=== PATIENT | female | born 1965 | race African-American/Black ===

== ENCOUNTER 2018-07-23 21:43 | Emergency (ER) | payer MEDICAID, OTHER ==
[~2018-07-23] VITALS: Ht 180.3 cm; Wt 59.0 kg
[2018-07-24] MEDS ORDERED: LORAZEPAM 2MG/ML CPJ IV ONE (03:15)
[2018-07-24] MEDS ORDERED: LORAZEPAM 1MG TABLET PO ONE (03:30)
[2018-07-24] MEDS ORDERED: DIPHENHYDRAMINE 25MG CAPSULE PO ONE (03:30)
[2018-07-24 03:33] LABS: BASOPHILS % 2.2 % (0.0-2.0); EOSINOPHILS % 2.3 % (0.0-5.0); HEMATOCRIT. 42.4 % (36.0-48.0); HEMOGLOBIN. 14.3 g/dL (12.0-16.0); LYMPHOCYTES % 57.8 % (20.0-50.0); MEAN CORPUSCULAR VOLUME 88.8 fL (81.0-99.0); MEAN PLATELET VOLUME 9.3 fl (7.4-10.4); MONOCYTES % 6.1 % (2.0-8.0); NEUTROPHILS % 31.6 % (40.0-76.0); PLATELET 201 x1000/uL (130-400); RED BLOOD CELL COUNT 4.78 mill/uL (4.2-5.4); RED CELL DISTRIBUTION WIDTH 13.1 % (11.6-14.6)
[2018-07-24 03:34] LABS: CHLORIDE 105 mEq/L (98-107)
[2018-07-24 09:30] VITALS: BP 111/75
[2018-07-25] MEDS ORDERED: METF-414 PO (00:58)
[2018-07-25] MEDS ORDERED: OMEP40CA34 PO (00:58)
[2018-07-25] MEDS ORDERED: AMLO5TAB4 PO (00:58)
== END 2018-07-24 09:32 | disposition home or self-care (01) ==
LOC: ER 21:43
DX: F13.239 Sedative, hypnotic or anxiolytic dependence with withdrawal, unspecified (principal); I10 Essential (primary) hypertension; E11.9 Type 2 diabetes mellitus without complications; G82.20 Paraplegia, unspecified
CPT/HCPCS: 36415; 71045; 82962; 84484; 93005; 99284; Q0163

== ENCOUNTER 2018-07-24 09:52 | Inpatient (IN) | payer MEDICAID, OTHER ==
[~2018-07-24] VITALS: Ht 180.3 cm; Wt 58.1 kg
[2018-07-24] MEDS ORDERED: ASPIRIN 81MG TABLET PO ONE (11:30)
[2018-07-24] MEDS ORDERED: NITROGLYCERIN 0.4MG TABLET SL SL PRN (11:30)
[2018-07-24] MEDS ORDERED: MAGNESIUM/ALUMINUM HYDROXIDE/SIMETHICONE 30ML UDC PO ONE (11:45)
[2018-07-24 13:45] LABS: BASOPHILS % 0.9 % (0.0-2.0); EOSINOPHILS % 1.4 % (0.0-5.0); HEMATOCRIT. 44.4 % (36.0-48.0); HEMOGLOBIN. 14.9 g/dL (12.0-16.0); LYMPHOCYTES % 37.3 % (20.0-50.0); MEAN CORPUSCULAR HEMOGLOBIN 29.8 pg (28.0-32.0); MEAN CORPUSCULAR VOLUME 88.7 fL (81.0-99.0); MEAN PLATELET VOLUME 10.2 fl (7.4-10.4); MONOCYTES % 4.7 % (2.0-8.0); NEUTROPHILS % 55.7 % (40.0-76.0); PLATELET 197 x1000/uL (130-400); RED CELL DISTRIBUTION WIDTH 13.1 % (11.6-14.6)
[2018-07-24 13:51] LABS: CHLORIDE 104 mEq/L (98-107)
[2018-07-24 13:57] LABS: D-DIMER 0.2 mg/L FEU (<0.50); INR 1.1; PARTIAL THROMBOPLASTIN TIME 27.3 sec (23.4-31.0); PROTHROMBIN TIME 10.8 sec (9.1-11.1)
[2018-07-24] MEDS ORDERED: ONDANSETRON HCL 4MG/2ML INJ IV PRN (15:00)
[2018-07-24] MEDS ORDERED: DOCUSATE SODIUM 100MG CAPSULE PO PRN (15:00)
[2018-07-24] MEDS ORDERED: CLONIDINE 0.1MG TABLET PO PRN (15:00)
[2018-07-24] MEDS ORDERED: HYDROCODONE/ACETAMINOPHEN 5/325MG TABLET PO PRN (15:00)
[2018-07-24] MEDS ORDERED: ACETAMINOPHEN 325MG TABLET PO PRN (15:00)
[2018-07-24] MEDS ORDERED: MAGNESIUM/ALUMINUM HYDROXIDE/SIMETHICONE 30ML UDC PO PRN (15:00)
[2018-07-24] MEDS ORDERED: IPRATROPIUM/ALBUTEROL 0.5-3(2.5)MG/3ML NEB INH PRN (15:00)
[2018-07-24] MEDS: PANTOPRAZOLE 40MG DR TABLET PO SCH (15:00)
[2018-07-24 16:00] VITALS: BP 189/65
[2018-07-24 17:10] LABS: CHLORIDE 105 mEq/L (98-107)
[2018-07-24] MEDS: NITROGLYCERIN OINT 1GM/INCH UDPKT TD SCH (18:00)
[2018-07-24] MEDS: ENOXAPARIN 40MG/0.4ML SYR SUBCUT SCH (18:00)
[2018-07-24 20:00] VITALS: BP 137/76
[2018-07-24] MEDS: AMLODIPINE 2.5MG TABLET PO SCH (20:19)
[2018-07-25] VITALS (7 sets, daily range): BP systolic 98–128; BP diastolic 48–94
[2018-07-25] MEDS ORDERED: OMEP40CA34 PO (00:58)
[2018-07-25] MEDS ORDERED: METF-414 PO (00:58)
[2018-07-25] MEDS ORDERED: AMLO5TAB4 PO (00:58)
[2018-07-25] MEDS ORDERED: DEXTROSE 50% WATER 50ML SYRINGE IV PRN (03:00)
[2018-07-25] MEDS: NITROGLYCERIN OINT 1GM/INCH UDPKT TD SCH ×4 (05:27→17:05)
[2018-07-25 06:05] LABS: BASOPHILS % 1.2 % (0.0-2.0); HEMATOCRIT. 42.8 % (36.0-48.0); HEMOGLOBIN. 14.5 g/dL (12.0-16.0); LYMPHOCYTES % 49.3 % (20.0-50.0); MEAN CORPUSCULAR HEMOGLOBIN 30.1 pg (28.0-32.0); MEAN CORPUSCULAR VOLUME 88.8 fL (81.0-99.0); MEAN PLATELET VOLUME 9.6 fl (7.4-10.4); MONOCYTES % 7.4 % (2.0-8.0); NEUTROPHILS % 38.1 % (40.0-76.0); PLATELET 211 x1000/uL (130-400); RED BLOOD CELL COUNT 4.82 mill/uL (4.2-5.4); RED CELL DISTRIBUTION WIDTH 12.8 % (11.6-14.6)
[2018-07-25 06:17] LABS: LDL CHOLESTEROL 129 mg/dL (5-100)
[2018-07-25 06:20] LABS: CREATINE KINASE 117 IU/L (26-192); HDL CHOLESTEROL 32 mg/dL (40-59)
[2018-07-25 06:22] LABS: CREATINE KINASE MB FRACTION 1.1 ng/mL (0.5-3.6)
[2018-07-25] MEDS: INSULIN LISPRO 100 UNITS/ML SUBCUT SCH ×4 (07:34→20:17)
[2018-07-25] MEDS: BLOOD SUGAR DIAGNOSTIC STRIP TEST SCH ×4 (07:34→20:16)
[2018-07-25] MEDS: ASPIRIN 81MG EC TABLET PO SCH (08:34)
[2018-07-25] MEDS: AMLODIPINE 2.5MG TABLET PO SCH ×2 (08:34→20:16)
[2018-07-25] MEDS: PANTOPRAZOLE 40MG DR TABLET PO SCH (08:34)
[2018-07-25] MEDS ORDERED: MECLIZINE 25MG TABLET PO NR (09:00)
[2018-07-25 11:51] LABS: *AMPHETAMINES SCREEN URINE NEGATIVE (NEGATIVE); *BARBITURATES SCREEN URINE NEGATIVE (NEGATIVE); *BENZODIAZEPINES SCREEN URINE NEGATIVE (NEGATIVE); *COCAINE SCREEN URINE NEGATIVE (NEGATIVE); CANNABINOID URINE SCREEN NEGATIVE (NEGATIVE); PHENCYCLIDINE URINE SCREEN NEGATIVE (NEGATIVE)
[2018-07-25 11:53] LABS: METHADONE URINE SCREEN NEGATIVE (NEGATIVE); OPIATES URINE SCREEN NEGATIVE (NEGATIVE)
[2018-07-25] MEDS: ENOXAPARIN 40MG/0.4ML SYR SUBCUT SCH (17:52)
[2018-07-26] VITALS: BP 100/53
[2018-07-26 04:00] VITALS: BP 103/67
[2018-07-26] MEDS: NITROGLYCERIN OINT 1GM/INCH UDPKT TD SCH ×4 (05:14→17:31)
[2018-07-26 06:23] LABS: BASOPHILS % 1.3 % (0.0-2.0); HEMATOCRIT. 41.7 % (36.0-48.0); HEMOGLOBIN. 14.1 g/dL (12.0-16.0); LYMPHOCYTES % 50.4 % (20.0-50.0); MEAN CORPUSCULAR VOLUME 88.8 fL (81.0-99.0); MEAN PLATELET VOLUME 9.8 fl (7.4-10.4); MONOCYTES % 7.4 % (2.0-8.0); NEUTROPHILS % 36.9 % (40.0-76.0); PLATELET 197 x1000/uL (130-400); RED BLOOD CELL COUNT 4.69 mill/uL (4.2-5.4); RED CELL DISTRIBUTION WIDTH 12.8 % (11.6-14.6)
[2018-07-26 06:31] LABS: CHLORIDE 107 mEq/L (98-107)
[2018-07-26 08:00] VITALS: BP 120/76
[2018-07-26] MEDS: BLOOD SUGAR DIAGNOSTIC STRIP TEST SCH ×4 (08:06→21:00)
[2018-07-26] MEDS: INSULIN LISPRO 100 UNITS/ML SUBCUT SCH ×4 (08:07→21:00)
[2018-07-26] MEDS: PANTOPRAZOLE 40MG DR TABLET PO SCH (08:34)
[2018-07-26] MEDS: ASPIRIN 81MG EC TABLET PO SCH (08:34)
[2018-07-26] MEDS: AMLODIPINE 2.5MG TABLET PO SCH ×2 (08:36→21:00)
[2018-07-26 12:00] VITALS: BP 145/89
[2018-07-26] MEDS ORDERED: MECLIZINE 25MG TABLET PO PRN (13:45)
[2018-07-26 16:00] VITALS: BP 113/74
[2018-07-26] MEDS: ENOXAPARIN 40MG/0.4ML SYR SUBCUT SCH (17:30)
[2018-07-26] MEDS ORDERED: ZOLPIDEM TARTRATE 5MG TABLET PO NR (21:00)
[2018-07-27] MEDS: NITROGLYCERIN OINT 1GM/INCH UDPKT TD SCH
[2018-07-27 08:00] VITALS: BP 131/70
[2018-07-27] MEDS: INSULIN LISPRO 100 UNITS/ML SUBCUT SCH (08:10)
[2018-07-27] MEDS: BLOOD SUGAR DIAGNOSTIC STRIP TEST SCH (08:10)
[2018-07-27] MEDS: AMLODIPINE 2.5MG TABLET PO SCH (09:00)
[2018-07-27 09:37] LABS: BASOPHILS % 1.2 % (0.0-2.0); EOSINOPHILS % 4.2 % (0.0-5.0); HEMATOCRIT. 43.6 % (36.0-48.0); HEMOGLOBIN. 14.7 g/dL (12.0-16.0); LYMPHOCYTES % 52.7 % (20.0-50.0); MEAN CORPUSCULAR HEMOGLOBIN 30.1 pg (28.0-32.0); MEAN CORPUSCULAR VOLUME 89.4 fL (81.0-99.0); MEAN PLATELET VOLUME 10.8 fl (7.4-10.4); MONOCYTES % 6.1 % (2.0-8.0); NEUTROPHILS % 35.8 % (40.0-76.0); PLATELET 174 x1000/uL (130-400); RED BLOOD CELL COUNT 4.88 mill/uL (4.2-5.4); RED CELL DISTRIBUTION WIDTH 12.9 % (11.6-14.6)
[2018-07-27 09:45] LABS: CHLORIDE 106 mEq/L (98-107)
[2018-07-27] MEDS: PANTOPRAZOLE 40MG DR TABLET PO SCH (09:46)
[2018-07-27] MEDS: ASPIRIN 81MG EC TABLET PO SCH (09:46)
[2018-07-27] MEDS ORDERED: ZOLP5TAB2 PO (10:35)
[2018-07-27] MEDS ORDERED: MECL12.584 PO (10:35)
[2018-07-27 12:00] VITALS: BP 124/81
[2018-07-27 13:18] VITALS: BP 124/81
== END 2018-07-27 14:25 | disposition home or self-care (01) | DRG 198 ==
LOC: ER 09:52 → 7WST 14:39 → EDBEDREQTM 14:45 → EDBEDREQ 14:45 → ENRESERV 15:31
PROVIDERS: ADMIT Internal Medicine; ATTEND Internal Medicine
DX: I25.118 Atherosclerotic heart disease of native coronary artery with other forms of angina pectoris (principal); G82.20 Paraplegia, unspecified; E11.9 Type 2 diabetes mellitus without complications; F13.239 Sedative, hypnotic or anxiolytic dependence with withdrawal, unspecified; I10 Essential (primary) hypertension; Z90.49 Acquired absence of other specified parts of digestive tract
CPT/HCPCS: 36415; 71045; 80048; 80061; 80305; 82550; 82553; 82962; 83735; 83880; 84443; 84484; 85379; 93005; 93306; 93970; 99285; J1650; J8597